=== PATIENT | male | born 1985 | race Caucasian/White ===

== ENCOUNTER 2019-08-24 08:57 | Emergency (ER) | payer BC, OTHER ==
--- NOTE | 2019-08-24 09:08 | EDM.PDOC ---
ED HPI GENERAL MEDICAL PROBLEM - General Chief Complaint: Laceration Stated Complaint: HIT FACE WITH ICE FISHING DRILL Time Seen by Provider: 08/24/19 09:08 Source of Information: Reports: Patient, RN, RN Notes Reviewed History Limitations: Reports: No Limitations - History of Present Illness INITIAL COMMENTS - FREE TEXT/NARRATIVE: Pt presents to ER by POV with c/o lip laceration. He was drilling an ice hole with a ice fishing auger and it kicked back, the battery struck him in the right upper lip. Denies fall, LOC, N/V, neck pain, or any broken or loose teeth. Unknown tetanus vaccination status per pt. Onset: Today, Sudden Duration: Constant Location: Reports: Face Quality: Reports: Ache Severity: Mild Improves with: Reports: None Worsens with: Reports: None Associated Symptoms: Reports: No Other Symptoms - Related Data Allergies Allergy/AdvReac Type Severity Reaction Status Date / Time No Known Allergies Allergy Verified 08/24/19 09:06 Home Meds: Home Meds . [No Known Home Meds] 08/24/19 [History] Past Medical History - Past Health History Medical/Surgical History: Denies Medical/Surgical History Social & Family History - Family History Family Medical History: Noncontributory - Tobacco Use Smoking Status *Q: Never Smoker - Living Situation & Occupation Occupation: Employed ED ROS GENERAL - Review of Systems Review Of Systems: Comprehensive ROS is negative, except as noted in HPI. ED EXAM, SKIN/RASH Exam: See Below Exam Limited By: No Limitations General Appearance: Alert, WD/WN, No Apparent Distress Eye Exam: Bilateral Eye: EOMI, Normal Inspection, PERRL Ears: Normal External Exam Nose: Normal Inspection, Normal Mucosa, No Blood Throat/Mouth: Normal Teeth, Normal Gums, Normal Oropharynx, Normal Voice, No Airway Compromise, Other (2.5cm linear laceration of right upper lip which crosses the madelyn border, and is through full thickness to the intra-oral lip, no active bleeding, no FB.) Head: Normocephalic Neck: Normal Inspection, Supple, Non-Tender, Full Range of Motion Respiratory/Chest: No Respiratory Distress Extremities: Normal Inspection Neurological: Alert, Oriented, CN II-XII Intact, Normal Cognition, Normal Gait, No Motor/Sensory Deficits Psychiatric: Normal Affect, Normal Mood Skin: Warm, Dry ED SKIN PROCEDURES - Laceration/Wound Repair Right Upper Mouth Appearance: Subcutaneous, Linear, Clean Distal NVT: Neuro & Vascular Intact Anesthetic Type: Local Local Anesthesia - Lidocaine (Xylocaine): 1% with EPI Local Anesthetic Volume: Other (10cc) Skin Prep: Chlorhexidine (Hibiciens), Saline, Sterile Drape Saline Irrigation (cc's): 250 Exploration/Debridement/Repair: Wound Explored, In a Bloodless Field, Explored to Base, Minimal Debridement, Moderately Undermined, No Foreign Material Found Closed with: Sutures Lac/Wound length In cm: 2.5 Suture Size: 5-0 # of Sutures: 6 Suture Type: Nylon, Interrupted Drain Placement: No Sterile Dressing Applied: None Tetanus Status Addressed: Yes Complications: No Course - Vital Signs Last Recorded V/S: Last Vital Signs Temp 98.6 F 08/24/19 09:06 Pulse 79 08/24/19 09:06 Resp 14 08/24/19 09:06 BP 140/101 H 08/24/19 09:06 Pulse Ox 99 08/24/19 09:06 - Orders/Labs/Meds Orders: Active Orders 24 hr Category Date Time Status Vaccines to be Administered [RC] PER UNIT ROUTINE Care 08/24/19 09:10 Active Meds: Medications Discontinued Medications Generic Name Dose Route Start Last Admin Trade Name Freq PRN Reason Stop Dose Admin Bacitracin 1 dose 08/24/19 09:11 08/24/19 09:21 Bacitracin Oint 1 Gm TOP 08/24/19 09:12 1 dose ONETIME ONE Administration Clindamycin HCl 300 mg 08/24/19 09:11 08/24/19 09:21 Cleocin PO 08/24/19 09:12 300 mg ONETIME ONE Administration Diphtheria/Tetanus/Acell Pertussis 0.5 ml 08/24/19 09:10 08/24/19 09:21 Adacel IM 08/24/19 09:11 0.5 ml .ONCE ONE Administration Lidocaine/Epinephrine 20 ml 08/24/19 09:11 08/24/19 09:21 Xylocaine 1% With Epinephrine 1:100,000 INJECT 08/24/19 09:12 20 ml ONETIME ONE Administration Departure - Departure Time of Disposition: 09:50 Disposition: Home, Self-Care 01 Condition: Good Clinical Impression: Lip laceration Qualifiers: Encounter type: initial encounter Qualified Code(s): S01.511A - Laceration without foreign body of lip, initial encounter - Discharge Information *PRESCRIPTION DRUG MONITORING PROGRAM REVIEWED*: Not Applicable *COPY OF PRESCRIPTION DRUG MONITORING REPORT IN PATIENT EMILIANO: Not Applicable Instructions: Mouth Laceration, Sutured Wound Care, [id number] Forms: ED Department Discharge Additional Instructions: Rx: Clindamycin 300mg Swish and spit with tap water or saltwater to rinse mouth after eating or drinking. Follow up in clinic for suture removal in 7 to 10 days. Sepsis Event Note - Focused Exam Vital Signs: Vital Signs Temp Pulse Resp BP Pulse Ox 08/24/19 09:06 98.6 F 79 14 140/101 H 99 Date Exam was Performed: 08/24/19 Time Exam was Performed: 09:49 - My Orders Last 24 Hours: My Active Orders 08/24/19 09:10 Vaccines to be Administered [RC] PER UNIT ROUTINE - Assessment/Plan Last 24 Hours: My Active Orders 08/24/19 09:10 Vaccines to be Administered [RC] PER UNIT ROUTINE
[2019-08-24] MEDS ORDERED: Diphtheria,Pertussis(Acell),Tetanus Vaccine 0.5 ML SDV IM ONE (09:10)
[2019-08-24] MEDS ORDERED: Clindamycin HCl 150 MG Cap PO ONE (09:11)
[2019-08-24] MEDS ORDERED: Bacitracin Oint 1 GM U/D Packet TOP ONE (09:11)
[2019-08-24] MEDS ORDERED: Lidocaine 1% with EPINEPHrine 1:100,000 20 ML MDV INJECT ONE (09:11)
== END 2019-08-24 09:56 | disposition home or self-care (01) ==
LOC: DL.ED 08:57
DX: S01.511A Laceration without foreign body of lip, initial encounter (principal); Z23 Encounter for immunization; W22.8XXA Striking against or struck by other objects, initial encounter
CPT/HCPCS: 40650; 90471; 90715; 99282; A9270